=== PATIENT | male | born 1970 | race Two or more races ===

== ENCOUNTER 2022-03-07 11:02 | Outpatient (CLI) | payer OTHER | END 2022-03-07 11:13 | disposition home or self-care (01) | LOC: RAD 11:02 | PROVIDERS: ATTEND Surgery | DX: D12.3 Benign neoplasm of transverse colon (principal); D37.4 Neoplasm of uncertain behavior of colon; K59.00 Constipation, unspecified; K62.5 Hemorrhage of anus and rectum ==

== ENCOUNTER 2022-03-09 08:15 | Inpatient (IN) | payer OTHER ==
[~2022-03-09] VITALS: Ht 176.5 cm; Wt 112.0 kg
[2022-03-09] MEDS ORDERED: ADULT LOW DOSE81 M1 PO (15:42)
[2022-03-09] MEDS ORDERED: COZAAR100 MG PO (15:42)
[2022-03-09] MEDS ORDERED: TOPROL XL50 M1 PO (15:42)
[2022-03-09] MEDS ORDERED: WARFARIN SODIUM5 MG PO (15:44)
[2022-03-14] MEDS ORDERED: PANTOPRAZOLE SO40 MG (14:56)
[2022-03-19] MEDS ORDERED: NEURONTIN300 MG PO (09:50)
[2022-03-19] MEDS ORDERED: INTESTINEX680 M1 PO (09:50)
== END 2022-03-19 11:30 | disposition home or self-care (01) | DRG 331 ==
LOC: EDUNIT# 08:15 → SURG 03-14 08:15 → O/R 03-14 08:36 → SURH 03-14 08:36 → SURG 03-14 14:15 → SURH 03-14 20:55
PROVIDERS: ADMIT Surgery; ATTEND Surgery
PROC: 0DBL4ZZ Excision of Transverse Colon, Percutaneous Endoscopic Approach (ICD-10-PCS; 2022-03-14)
PROC: 07BB4ZZ Excision of Mesenteric Lymphatic, Percutaneous Endoscopic Approach (ICD-10-PCS; 2022-03-14)
PROC: 4A12X4Z Monitoring of Cardiac Electrical Activity, External Approach (ICD-10-PCS; 2022-03-14)
PROC: 3E0F7SF Introduction of Other Gas into Respiratory Tract, Via Natural or Artificial Opening (ICD-10-PCS; 2022-03-14)
PROC: B246ZZZ Ultrasonography of Right and Left Heart (ICD-10-PCS; 2022-03-14)
PROC: 0DTF4ZZ Resection of Right Large Intestine, Percutaneous Endoscopic Approach (ICD-10-PCS; principal; 2022-03-14 14:15)
DX: C18.2 Malignant neoplasm of ascending colon (principal); R59.0 Localized enlarged lymph nodes; D50.0 Iron deficiency anemia secondary to blood loss (chronic); I11.9 Hypertensive heart disease without heart failure; G47.30 Sleep apnea, unspecified; Z95.4 Presence of other heart-valve replacement

== ENCOUNTER 2025-01-30 08:00 | Day surgery (SDC) | payer OTHER ==
[~2025-01-30 08:00] MED LIST: ADULT LOW DOSE81 M1 PO; ANALPRAM HC 2.530 GM RECTAL; COZAAR100 MG PO; HYDRALAZINE; INTESTINEX680 M1 PO; IRBESARTAN; NEURONTIN300 MG PO; PANTOPRAZOLE SO40 MG; TOPROL XL50 M1 PO; WARFARIN SODIUM5 MG PO
[2025-01-30 12:50] LABS: INR 1.24
[2025-01-30] MEDS ORDERED: ERTAPENEM SODIUM 1,000 MG VIAL ONE (13:34)
[2025-01-30] MEDS ORDERED: DIBUCAINE 30 GM TUBE ONE (16:39)
[2025-01-30] MEDS ORDERED: POVIDONE-IODINE 118 ML BOTT TOP ONE (16:39)
[2025-01-30] MEDS ORDERED: HEMOSTATIC MATRIX 1 KIT KIT TOP ONE (16:41)
[2025-01-30] MEDS ORDERED: HYDROGEN PEROXIDE 473 ML BOTTLE TOP ONE (17:25)
[2025-01-30] MEDS ORDERED: BUPIVACAINE HCL 30 ML VIAL IJ ONE (17:45)
[2025-01-30] MEDS ORDERED: LIDOCAINE HCL 1%/EPINEPHRINE 20ML VIAL IJ ONE (17:45)
[2025-01-30] MEDS ORDERED: SUGAMMADEX SODIUM 200 MG/2 ML VIAL IV ONE (17:51)
[2025-01-30] MEDS ORDERED: NEURONTIN300 MG PO (17:58)
[2025-01-30] MEDS ORDERED: TRAM1TAB98 PO (17:58)
== END 2025-01-30 20:05 | disposition home or self-care (01) ==
LOC: CIR.AMB 08:00
PROVIDERS: ATTEND Surgery
DX: K60.321 Anal fistula, complex, initial (principal); C18.2 Malignant neoplasm of ascending colon; K62.89 Other specified diseases of anus and rectum; K62.5 Hemorrhage of anus and rectum; Z88.0 Allergy status to penicillin; Z91.013 Allergy to seafood; Z88.1 Allergy status to other antibiotic agents; R59.0 Localized enlarged lymph nodes